=== PATIENT | male | born 1980 | race African-American/Black ===

== ENCOUNTER → 2019-09-12 | Outpatient (CLI) | payer OTHER ==
--- NOTE | 2019-09-12 13:48 | KCIC ---
EXAM: Abdomen sonogram. HISTORY: Nausea and vomiting. TECHNIQUE: Sonographic imaging of the abdomen was performed. COMPARISON: None. FINDINGS: The liver is normal in size. No focal hepatic lesion is seen. The liver parenchyma is slightly echogenic, suggesting mild steatosis. The gallbladder is unremarkable. The common bile duct is normal color. The right kidney is unremarkable. The pancreas and inferior vena cava are partially obscured due to bowel gas. IMPRESSION: 1. Suspected mild hepatic steatosis. 2. Limited evaluation of the midline structures due to bowel gas. Electronically signed by: Zulma Stanley MD (09/12/2019 1:45 PM) [facility] [place]
== END | disposition home or self-care (01) ==
LOC: KCIC US 12:38
PROVIDERS: ATTEND Internal Medicine
DX: R11.2 Nausea with vomiting, unspecified (principal)
CPT/HCPCS: 76705